=== PATIENT | female | born 1980 | race Caucasian/White ===

== ENCOUNTER 2019-02-27 12:59 | Outpatient (CLI) | payer BC ==
--- NOTE | 2019-02-27 13:35 | ULT ---
VENOUS DOPPLER ULTRASOUND OF THE RIGHT LOWER EXTREMITY: Date: 02/27/19 HISTORY: Right leg pain. TECHNIQUE: Alarcon scale ultrasound with color flow and spectral Doppler imaging of the deep venous systems of the lower extremities was performed bilaterally. FINDINGS: There is good flow, compression, and augmentation noted in the right common femoral, femoral, deep fe moral, popliteal, posterior tibial, and greater saphenous veins. IMPRESSION: No evidence of deep venous thrombosis in the right lower extremity. POS: OFF
== END 2019-02-27 13:00 | disposition home or self-care (01) ==
LOC: SCSULT 12:59
PROVIDERS: ATTEND Family Medicine
DX: I83.811 Varicose veins of right lower extremity with pain (principal)

== ENCOUNTER 2019-03-14 11:25 | Outpatient (CLI) | payer BC ==
--- NOTE | 2019-03-14 12:00 | RAD ---
EXAM: 5 views of the cervical spine HISTORY: Neck pain COMPARISON: None FINDINGS: AP, lateral, flexion/extension, and open mouth odontoid views of the cervical spine shows n ormal height and alignment of the vertebral bodies and intervertebral discs without fracture or subluxation. Mild degenerative changes are seen at C5/6. No prevertebral soft tissue swelling is seen . Alignment is unchanged with flexion and extension. IMPRESSION: Minimal degenerative change at C5/6 with unchanged alignment with bending
--- NOTE | 2019-03-14 13:40 | RAD ---
LUMBAR SPINE FOUR VIEWS: HISTORY: Low back pain. FINDINGS: The lumbar vertebrae maintain normal height and alignment. Disk spaces are preserved. No evidence of spondylolisthesis. No change in alignment with flexion or extension. IMPRESSION: Unremarkable lumbar spine. POS: VERONICA
== END 2019-03-14 11:26 | disposition home or self-care (01) ==
LOC: SCSRAD 11:25
PROVIDERS: ATTEND Family Medicine
DX: M54.5 Low back pain (principal); R51 Headache; M47.812 Spondylosis without myelopathy or radiculopathy, cervical region
CPT/HCPCS: 72050; 72120

== ENCOUNTER 2019-04-18 09:58 | Outpatient (CLI) | payer BC ==
--- NOTE | 2019-04-18 10:21 | RAD ---
EXAM: Chest PA and lateral: HISTORY: Dyspnea COMPARISON: 06/01/2016 FINDINGS: Heart: Normal cardiac silhouette Aorta: Unremarkable Pulmonary vessels: Normal Costophrenic angles: Costophrenic angles are clear. Lungs: No consolidation or masses. Pneumothorax: No pneumothorax Osseous structures: No osseous abnormalities IMPRESSION: No acute cardiopulmonary process.
== END 2019-04-18 09:59 | disposition home or self-care (01) ==
LOC: RAD 09:58
PROVIDERS: ATTEND Internal Medicine Critical Care Medicine
DX: R06.00 Dyspnea, unspecified (principal)
CPT/HCPCS: 71046